=== PATIENT | female | born 1945 ===

== ENCOUNTER 2017-07-27 05:50 | Day surgery (SDC) | payer MEDICARE ==
[2017-07-20 08:40] VITALS: BMI 26.9
[2017-07-27] MEDS ORDERED: ceFAZolin 1 gm in NS 2 GM/200 ML BAG IVPB ONE (07:14)
[2017-07-27] MEDS ORDERED: Lidocaine/Epinephrine 1% 1:100000 10 ML IJ ONE (07:15)
[2017-07-27] MEDS ORDERED: Midazolam 2 MG/2 ML VIAL ONE (07:32)
[2017-07-27] MEDS ORDERED: Propofol 10 mg/ml Inj (20 ML) ONE (07:32)
[2017-07-27] MEDS ORDERED: Rocuronium 10 mg/ml (5 ml) ONE (07:34)
[2017-07-27] MEDS ORDERED: ePHEDrine 50 mg/ml Inj ONE (07:34)
[2017-07-27] MEDS ORDERED: Phenylephrine 10 mg/ml Inj ONE (07:34)
[2017-07-27] MEDS ORDERED: Succinylcholine Chloride 20 mg/ml Syr (5 ml) IV ONE (08:00)
[2017-07-27] MEDS: Bupivacaine HCl 0.25% PF (30 ml) Inj ONE ×2 (08:20→08:42)
[2017-07-27] MEDS ORDERED: Neostigmine Methylsulfate 3mg/3ml Syringe IV ONE (09:04)
[2017-07-27] MEDS ORDERED: Oxycodone/Acetaminophen 5/325 mg Tab PO PRN (09:58)
--- NOTE | 2017-07-27 09:58 | PCM.SURG1 ---
Surgeon's Initial Post Op Note - Surgeon's Notes Surgeon: Dr. Claudio Waiter/Waitress Take Out: Lucy Hawley, PGY-1; Danna BUENROSTRO Pre-Operative Diagnosis: Ventral hernia Operative Findings: See op report Post-Operative Diagnosis: Incarcerated incisional hernia Operation Performed: Incarcerated incisional hernia repair with mesh Specimen/Specimens Removed: hernia sac Estimated Blood Loss: EBL {In ML}: 10 Blood Products Given: N/A Drains Used: No Drains Post-Op Condition: Good Date of Surgery/Procedure: 07/27/17 Time of Surgery/Procedure: 09:57
[2017-07-27] MEDS: HYDROmorphone 0.5 mg/0.5 ml ISec IVP PRN ×3 (10:14→11:06)
[2017-07-27] MEDS ORDERED: Lactated Ringer's 1,000 ML IV ONE (11:30)
[2017-07-27 11:44] VITALS: O2SAT 95
[2017-07-27 15:59] VITALS: BP 141/63; PULSE 76; RESP 18; TEMP 97.8
--- NOTE | 2017-07-27 21:15 | OP ---
PROCEDURE DATE: 07/27/2017 PREOPERATIVE DIAGNOSES: 1. Incisional hernia. 2. Status post laparoscopic cholecystectomy with possible postoperative adhesion. 3. Morbid obesity. POSTOPERATIVE DIAGNOSES: 1. Incarcerated incisional hernia containing omentum. 2. Extensive postoperative adhesion. 3. Morbid obesity. PROCEDURES: 1. Robotic incarcerated incisional repair with mesh. 2. Robotic lysis of adhesion extensive. 3. Laparoscopic bilateral TAP block placement. SURGEON: Kenny Claudio MD [employer]: YAYO Garzon; and Alexandra Hawley, PGY-2 resident. TYPE OF ANESTHESIA: General endotracheal tube anesthesia. ESTIMATED BLOOD LOSS: Around 10 mL. DRAINS: None. PATHOLOGY: Hernial sac and content was sent for the pathology. COMPLICATIONS: None. INTRAOPERATIVE FINDINGS: The patient had approximately 3 x 3 cm defect infraumbilical area at the site of previous operation containing large amount of omentum that was incarcerated, and patient also had extensive postoperative adhesion. DESCRIPTION OF PROCEDURE: On intraoperative steps, this is a 71-year-old female who was diagnosed with incisional hernia, and the patient was consented for the robotic incisional hernia repair with a mesh and brought to the OR, placed supine on the operating table. After induction of the anesthesia, the abdomen was prepped and draped in usual sterile fashion. The Dewey catheter was placed and the left upper quadrant incision was made after incising the skin and subcutaneous tissue and the fascia. Using the Visiport technique, the peritoneal cavity was entered. Pneumo was created. Another two 8-mm port was placed in the epigastric as well as the left flank area and robot was brought in. Camera arm as well as arm 1 and arm 2 were docked and first extensive lysis of adhesion was done to identify the omentum, and now the incarcerated omentum was reduced back into the peritoneal cavity, and the patient had approximately 3 x 4 cm defect, and the defect was closed with #1 Prolene V-Loc suture in a continuous manner and hernial sac was ligated and 9 x 9 cm mesh was introduced, and mesh was sutured with 2-0 V-Loc PDS suture, and after proper implantation of the mesh, the laparoscopic bilateral TAP block was given and all the port was taken out under vision. Pneumo was deflated. All the port site was closed in two layer, the subcu with 2-0 Vicryl, skin with 4-0 Monocryl, and dry sterile dressing was applied. The specimen was sent off the table for pathology. The patient was extubated in the OR and sent to the postanesthesia care unit in stable condition. There was no apparent complication. Kenny Claudio MD
== END 2017-07-27 15:30 | disposition home or self-care (01) ==
LOC: C.SDS 05:50
PROVIDERS: ATTEND Surgery Surgical Critical Care
DX: K43.0 Incisional hernia with obstruction, without gangrene (principal); K66.0 Peritoneal adhesions (postprocedural) (postinfection); E66.01 Morbid (severe) obesity due to excess calories
CPT/HCPCS: 49329; 49655; 64488; 88302; J0690; J1170; J2001; J2250; J2370; J2405; J2704; J2710; J3010; J7120